=== PATIENT | male | born 1965 | race Caucasian/White ===

== ENCOUNTER 2017-03-07 15:57 | Outpatient (CLI) | payer OTHER ==
[~2017-03-07] VITALS: Ht 180.3 cm; Wt 96.8 kg
[2017-03-07 16:02] VITALS: Ht 180.3 cm; Wt 96.8 kg
[2017-03-07 16:03] VITALS: BP 108/60; PULSE 86; RESP 18
[2017-03-07] MEDS ORDERED: METH500T8 PO (16:08)
[2017-03-07] MEDS ORDERED: MTF1000T PO (16:08)
[2017-03-07] MEDS ORDERED: GLIP5TAB13 PO (16:08)
[2017-03-07] MEDS ORDERED: METH500T PO (16:08)
[2017-03-07] MEDS ORDERED: ATOR20TA38 PO (16:08)
[2017-03-07] MEDS ORDERED: NAPR-683 PO (16:08)
--- NOTE | 2017-03-07 16:23 | PN ---
Date/Time of Note Date/Time of Note DATE: 03/07/17 TIME: 16:19 Outpatient Progress Note Chief Complaint Coughing/hyperlipidemia/diabetes HPI Coughing/patient was recently admitted with the bronchitis, patient still has slight cough, hemoptysis, chest pain, no fever chill, patient finished antibiotic, Hyperlipidemia/no xanthoma, on medication, Diabetes/no pleuritic supple due to hypoglycemia, gastroparesis, patient has lost some weight recently, patient doing exercise and eating proper food, no impaired vision, Heartburn/patient has heartburn, especially after taking Advil, no black stool, no diarrhea, no history of any bleeding ulcer, Review of Systems Const: No Fever, no chills, no Wt. loss, no Fatigue, normal appetite, no diaphoresis. Eyes: No pain, no discharge, no redness, no visual change, no foreign body. ENT: No pain, no bleeding, no congestion, no sore throat, no dysphagia, no discharge or rhinitis. Lymph: No adenopathy, no tender nodes, no lymphedema. Resp: No SOB, no cough, no sputum, no wheezing, no chest pain. CV: No chest pain, no palpitaions, no FISH, no PND, no edema. GI: Normal appetite, patient has heartburn, especially after taking Motrin or Advil, no pain, no nausea, no vomiting, no diarrhea, no blood, no constipation. : No frequency, no urgency, no dysuria, no hematuria, no flank pain, no discharge, no bleeding. Musc: No back pain, no neck pain, no knee pain, no restricted ROM. Skin: No rash, no skin lesions, no erythema, no laceration, no bruising, no pruritus. Neuro: No PAGE, no dizziness, no syncope, no seizure, no focal-weakness. Endo: No polyuria, no polydypsia, no dry-skin, no temp-intolerance. Psych: No hallucinations, no depression, no anxiety, no suicidal ideation. Ext: No edema, no pain, no ulcer, no weakness. Physical Exam Vital Signs Date Time Temp Pulse Resp B/P Pulse Ox O2 Delivery O2 Flow Rate FiO2 03/07/17 16:03 98.0 86 18 108/60 96 Room Air General Appearance: A 51 year-old male who appears well-developed, well- nourished, in no acute distress. HEENT: Head normocephalic, atraumatic. Pupils equal, round, reactive to light and accommodate. Sclerae are no jaundice. Nasal turbinates pink without erythema or nasal discharge. Mucous membranes pink and moist without lesions. Oropharynx clear without any exudate or discharge. NECK: Supple. Trachea midline, No thyromegaly, No cervical lymphadenopathy, No mass, No carotid bruits, No JVD, Carotid pulses 2+ bilaterally. PULMONARY: Clear to auscultaion bilaterally, No retractions, Chest expansion symmetric bilaterally, no rales, no ronchi, no dulness on percussion. CARDIAC: Normal SI and S2, Regular rate and rythm, no murmur, gallop, or rub. GASTROINTESTINAL: Abdomen is soft, non-tender, Non Rigid, No distention, Positive bowel sounds x4 quadrants, Liver normal. SKIN: Warm, dry, no rash, no bruise, no echmosis. EXTREMITIES: Bilateral lower extremities normal, no edema, no phlabitus, pulse palpable, no contracture. MUSCULOSKELETAL: Spine Normal, Non-tender, Normal range of motion, No swelling, no deformity, no clubbing, or cyanosis, the patient has no edema to bilateral lower extremities, dorsalis pedis pulses palpable bilaterally. NEUROLOGIC: The patient is awake, alert, oriented, responding to yes/no questions appropriately, moving all extremities, cranial nerve intact, normal strenght, normal power, normal coordination, normal gait. Allergies Coded Allergies: No Known Drug Allergies (Verified Allergy, Unknown, 03/07/17) PMH Bronchitis/hyperlipidemia/diabetes Social Hx No smoking, maybe once or twice a month social drinking, Family Hx Noncontributory Assessment/Plan Impression Bronchitis improving Hyperlipidemia Diabetes PUD Plan Patient has minimal cough, no fever chill, patient will be monitored closely, patient finished medication, Patient already on medication for lipid and diabetes, patient is occasional epigastric discomfort, especially after taking Motrin, Patient education done, Protonix 40 mg p.o. daily, #30 Encouraged to follow with the primary care physician, monitor closely, lose weight, control blood sugar, Medications Home Meds Reported Medications Naproxen* (Naproxen*) 250 Mg Tablet, 250 MG PO BID Y for PAIN LEVEL 1-5, TAB 03/07/17 Methocarbamol* (Robaxin*) 500 Mg Tab, 500 MG PO Q6, TAB 03/07/17 Methocarbamol* (Methocarbamol*) 500 Mg Tablet, 1000 MG PO Q6, TAB 03/07/17 Metformin* (Glucophage*) 1,000 Mg Tablet, 1000 MG PO BID, #60 TAB 03/07/17 Glipizide* (Glipizide*) 5 Mg Tablet, 5 MG PO AC BREAKFAST, TAB 03/07/17 Atorvastatin Calcium* (Atorvastatin Calcium*) 20 Mg Tablet, 20 MG PO QHS, #30 TAB 03/07/17 CHARLIE JOLLEY MD Mar 07, 2017 16:23
== END 2017-03-07 16:38 | disposition home or self-care (01) ==
LOC: DCC 15:57
PROVIDERS: ATTEND Internal Medicine
DX: K27.9 Peptic ulcer, site unspecified, unspecified as acute or chronic, without hemorrhage or perforation (principal); Z79.84 Long term (current) use of oral hypoglycemic drugs

== ENCOUNTER 2017-04-04 15:41 | Outpatient (CLI) | payer OTHER ==
[~2017-04-04] VITALS: Ht 180.3 cm; Wt 92.7 kg
[~2017-04-04 15:41] MED LIST: ATOR20TA38 PO; GLIP5TAB13 PO; METH500T PO; METH500T8 PO; MTF1000T PO; NAPR-683 PO
[2017-04-04 15:51] VITALS: Ht 180.3 cm; Wt 92.7 kg
[2017-04-04 15:52] VITALS: BP 123/77; PULSE 88; RESP 16
--- NOTE | 2017-04-04 16:06 | PN ---
Date/Time of Note Date/Time of Note DATE: 04/04/17 TIME: 16:04 Outpatient Progress Note Chief Complaint Diabetes/hyperlipidemia/ HPI Diabetes/no polydipsia polyuria hypoglycemia, patient blood sugar 191 today, patient may have eaten recently, Hyperlipidemia/no xanthoma, on medication, Patient was recently admitted with the bronchitis, patient feeling better, no cough expectoration, no fever chill, no chest pain, Review of Systems Const: No Fever, no chills, no Wt. loss, no Fatigue, normal appetite, no diaphoresis. Eyes: No pain, no discharge, no redness, no visual change, no foreign body. ENT: No pain, no bleeding, no congestion, no sore throat, no dysphagia, no discharge or rhinitis. Lymph: No adenopathy, no tender nodes, no lymphedema. Resp: No SOB, no cough, no sputum, no wheezing, no chest pain. CV: No chest pain, no palpitaions, no FISH, no PND, no edema. GI: Normal appetite, no pain, no nausea, no vomiting, no diarrhea, no blood, no constipation. : No frequency, no urgency, no dysuria, no hematuria, no flank pain, no discharge, no bleeding. Musc: No bone/joint pain, no back pain, no neck pain, no knee pain, no restricted ROM. Skin: No rash, no skin lesions, no erythema, no laceration, no bruising, no pruritus. Neuro: No PAGE, no dizziness, no syncope, no seizure, no focal-weakness. Endo: No polyuria, no polydypsia, no dry-skin, no temp-intolerance. Psych: No hallucinations, no depression, no anxiety, no suicidal ideation. Ext: No edema, no pain, no ulcer, no weakness. Physical Exam Vital Signs Date Time Temp Pulse Resp B/P Pulse Ox O2 Delivery O2 Flow Rate FiO2 04/04/17 15:52 97.4 88 16 123/77 96 Room Air General Appearance: A 51 year-old male who appears well-developed, well- nourished, in no acute distress., Slightly obese, HEENT: Head normocephalic, atraumatic. Pupils equal, round, reactive to light and accommodate. Sclerae are no jaundice. Nasal turbinates pink without erythema or nasal discharge. Mucous membranes pink and moist without lesions. Oropharynx clear without any exudate or discharge. NECK: Supple. Trachea midline, No thyromegaly, No cervical lymphadenopathy, No mass, No carotid bruits, No JVD, Carotid pulses 2+ bilaterally. PULMONARY: Clear to auscultaion bilaterally, No retractions, Chest expansion symmetric bilaterally, no rales, no ronchi, no dulness on percussion. CARDIAC: Normal SI and S2, Regular rate and rythm, no murmur, gallop, or rub. GASTROINTESTINAL: Abdomen is soft, non-tender, Non Rigid, No distention, Positive bowel sounds x4 quadrants, Liver normal. SKIN: Warm, dry, no rash, no bruise, no echmosis. EXTREMITIES: Bilateral lower extremities normal, no edema, no phlabitus, pulse palpable, no contracture. MUSCULOSKELETAL: Spine Normal, Non-tender, Normal range of motion, No swelling, no deformity, no clubbing, or cyanosis, the patient has no edema to bilateral lower extremities, dorsalis pedis pulses palpable bilaterally. NEUROLOGIC: The patient is awake, alert, oriented, responding to yes/no questions appropriately, moving all extremities, cranial nerve intact, normal strenght, normal power, normal coordination, normal gait. Allergies Coded Allergies: No Known Drug Allergies (Verified Allergy, Unknown, 03/07/17) PMH Change Social Hx No change Family Hx No change Assessment/Plan Impression Diabetes/hyperlipidemia/bronchitis resolved Plan Again patient education about diabetes and hyperlipidemia done, Patient encouraged to follow with the primary care physician, Patient blood sugar 191 this afternoon, patient to follow closely blood sugar and control the diet, increase exercise, and follow with the primary care physician with a one-month reading, Medications Home Meds Reported Medications Naproxen* (Naproxen*) 250 Mg Tablet, 250 MG PO BID Y for PAIN LEVEL 1-5, TAB 03/07/17 Methocarbamol* (Methocarbamol*) 500 Mg Tablet, 1000 MG PO Q6, TAB 03/07/17 Metformin* (Glucophage*) 1,000 Mg Tablet, 1000 MG PO BID, #60 TAB 03/07/17 Glipizide* (Glipizide*) 5 Mg Tablet, 5 MG PO AC BREAKFAST, TAB 03/07/17 Atorvastatin Calcium* (Atorvastatin Calcium*) 20 Mg Tablet, 20 MG PO QHS, #30 TAB 03/07/17 Discontinued Reported Medications Methocarbamol* (Robaxin*) 500 Mg Tab, 500 MG PO Q6, TAB 03/07/17 CHARLIE JOLLEY MD Apr 04, 2017 16:06
== END 2017-04-04 17:00 | disposition home or self-care (01) ==
LOC: DCC 15:41
PROVIDERS: ATTEND Internal Medicine
DX: E11.9 Type 2 diabetes mellitus without complications (principal); E78.5 Hyperlipidemia, unspecified; J40 Bronchitis, not specified as acute or chronic
CPT/HCPCS: 82962; G0463